=== PATIENT | male | born 1965 | race Hispanic/Latino ===

== ENCOUNTER 2024-08-19 13:56 | Emergency (ER) | payer BC ==
[~2024-08-19] VITALS: Ht 175.3 cm; Wt 90.7 kg
[2024-08-19 14:54] LABS: BASOPHILS # (AUTO) 0.04 K/uL (0.00-0.20); BASOPHILS % (AUTO) 0.6 % (0.0-5.0); EOSINOPHILS % (AUTO) 5.6 % (0.0-8.0); HEMATOCRIT 40.5 % (42-54); IMMATURE GRANULOCYTE ABSOLUTE 0.02 K/uL (0-1); LYMPHOCYTES # (AUTO) 2.6 K/uL (1.0-4.8); MEAN CORPUSCULAR HEMOGLOBIN 27.1 pg (27.0-33.0); MEAN CORPUSCULAR HGB CONC 34.6 g/dL (32.0-36.0); MEAN CORPUSCULAR VOLUME 78.3 fL (79-99); MONOCYTES # (AUTO) 0.4 K/uL (0.1-1.0); MONOCYTES % (AUTO) 4.9 % (3.0-13.0); NEUTROPHILS # (AUTO) 3.7 K/uL (1.8-7.7); NEUTROPHILS % (AUTO) 52.6 % (40.0-77.0); PLATELET COUNT (AUTO) 231 K/uL (130-400); RED BLOOD CELL COUNT(AUTO) 5.17 MIL/uL (4.50-6.20); RED CELL DISTRIBUTION WIDTH 14.6 % (11.0-15.5); WHITE BLOOD COUNT (AUTO) 7.1 K/uL (4.8-10.8)
[2024-08-19 15:02] LABS: CREATININE 2.8 mg/dL (0.5-1.3); POTASSIUM 4.8 mmol/L (3.5-5.1)
[2024-08-19] MEDS: DICYCLOMINE HCL 10 MG/5 ML ML PO ONE (15:16)
[2024-08-19] MEDS: LIDOCAINE HCL 2% VISCOUS 15 ML UDCUP PO ONE (15:17)
[2024-08-19] MEDS: MAG/ALUM/SIMETH 30 ML UDCUP PO ONE (15:17)
[2024-08-19] MEDS: INSULIN humuLIN R 100 UNIT/ML 3ML SQ ONE (16:28)
[2024-08-19] MEDS: 0.9% NACL 500ML IV.SOLN 500 ML IV STA (16:29)
[2024-08-19 17:01] VITALS: BP 124/84; PULSE 70; RESP 18; TEMP 98.1; O2SAT 98
== END 2024-08-19 17:27 | disposition home or self-care (01) ==
LOC: EDH 13:56
DX: J02.9 Acute pharyngitis, unspecified (principal); I12.9 Hypertensive chronic kidney disease with stage 1 through stage 4 chronic kidney disease, or unspecified chronic kidney disease; E11.22 Type 2 diabetes mellitus with diabetic chronic kidney disease; N18.9 Chronic kidney disease, unspecified; F41.9 Anxiety disorder, unspecified; E11.65 Type 2 diabetes mellitus with hyperglycemia
CPT/HCPCS: 99284; 71045; 80048; 85025; 87880; 82948; 36415; 96372; J1815